=== PATIENT | male | born 1955 | race Caucasian/White ===

== ENCOUNTER 2020-12-24 21:16 | Emergency (ER) | payer BC, SELFPAY ==
--- NOTE | 2020-12-24 21:30 | ED_ITS ---
HPI - CPR General Chief Complaint: Cardiac Arrest/CPR Stated Complaint: Cardiac Arrest Time Seen by Provider: 12/24/20 21:24 Source: EMS Mode of arrival: EMS Limitations: other (In cardiac arrest) History of Present Illness HPI narrative: Patient comes to the emergency room via EMS. According to the , the patient had been complaining of chest pain ?all afternoon?. She heard that her walked up the stairs, went to the bathroom, heard him collapse at approximately 20:30. By the time EMS arrived, the patient was cyanotic, in a systole, due to the patient's body habitus, intubation in the field was not possible. CPR was started, worked by EMS in the field for 20-30 minutes. Two epinephrine were given by EMS. MD complaint: collapsed during activity Review of Systems Review of Systems: Yes Unobtainable due to mental condition [facility] Past Medical History Medical History (Updated 12/24/20 @ 21:58 by Mya Be MD) Diabetes Social History Social History Advance Directives: No Advance Directives Information Provided: Yes Physical Exam Vital Signs: Appearance: Unconscious, cyanotic, CPR in process Eyes: Dilated, nonreactive to light ENT: Pharynx normal. Neck: No crepitus CVS: Asystole Respiratory: Now intubated Abdomen: Soft distended Skin: Cold, diffusely cyanotic Extremities: No Lacerations. No Rash Neuro: Patient intubated, Course Course Course Narrative: Patient received 2 epinephrine in the field, patient remained distally since EMS arrival. When patient arrived to emergency room, patient remained in asystole. Five rounds of epinephrine were given, a total of 50 minutes of CPR was done including EMS initial resuscitation attempts. I spoke to the patient's who is in the ER and son who is on the phone. They are aware that the patient's outcome. eligibility examiner call pending. Cause of that is unclear, it is likely that it is from cardiac etiology. As mentioned above, the patient complained of chest pain since early in the afternoon. I discussed the case with the nuclear medical technologist, the case was declined. Procedures Intubation sedative: none Laryngoscope: other (GlideScope) ET Tube Size: 8 Tube Secured Depth (cm): 24 Tube Secured Location: lips Tube Placement Confirmation: visualized tube passing through cords, equal breath sounds bilaterally and no breath sounds over epigastrium Patient Tolerated Procedure: other (No change, patient remained in asystole, eas y to ventilate) Intubation Complications: difficult intubation (Patient's body habitus, short thick neck, severe overweight) Discharge Plan Discharge Clinical Impression: Cardiac arrest Patient Disposition: Date/Time: 12/24/20 21:21
--- NOTE | 2020-12-24 22:19 | PC.NURSE ---
EMS REPORTS PATIENT TRANSPORTED FROM HOME. AT HOME HEARD PT FALL UPSTAIRS, HE WAS UNRESPOSIVE WHEN SHE WENT TO HIS SIDE. 911 CALLED, EMS ARRIVED TO FIND PATIENT IN CARDIAC ARREST AND IN ASYSTOLE. NO PRE HOSPITAL AIRWAY, OPA IN PLACE AND VENTILATED WITH BVM. MANUAL CPR, SANDIE WOULD NOT FIT PROPERLY ON PATIENT. PT STILL IN ASYSTOLE UPON ARRIVAL TO ER. PT INTUBATED BY MD, VENTILATED WITH BVM BY RT. GOOD COMPLIANCE, UNABLE TO CHECK CO2, NO BOX ON MONITOR. FOLLOWING SEVERAL ROUNDS OF CPR, EPI AND VENTILATION, PT TIME OF CALLED BY MD AT 21:21. MD USED ULTRASOUND MACHINE PRIOR TO TOD BEING CALLED. PT HAD CYANOSIS FROM UPPER CHEST TO NECK AND HEAD ON SCENE, PER EMS. EMS ALSO REPORTS THAT PATIENT'S STATED THAT PATIENT HAS BEEN COMPLAINING OF CHEST DISCOMFORT THROUGHOUT THE DAY, AND JUST BEFORE COLLAPSE TO GROUND.
--- NOTE | 2020-12-24 22:35 | PC.NURSE ---
[facility] CALLED BACK, THEY ARE INTERESTED IN ACCEPTING THE CASE, WOULD LIKE TO BE NOTIFIED WHEN [place] IS BEING [place] [facility] [place]
--- NOTE | 2020-12-24 23:53 | PC.NURSE ---
TRACY ARAUJO ASSISTED WITH RETURNING [place] [employer] AND GOLD CHAIN BRACELET TO .
--- NOTE | 2020-12-25 00:17 | PC.NURSE ---
PT TRANSPORTED TO [facility] [place] WITH PCT AND SECURITY, [facility] NOTIFIED.
== END 2020-12-24 23:59 | disposition expired ==
PROVIDERS: Emergency Provider Emergency Medicine
DX: I46.9 Cardiac arrest, cause unspecified (principal)
CPT/HCPCS: 31500; 96374; 99283; 99285; J0171